=== PATIENT | female | born 1985 | race African-American/Black ===

== ENCOUNTER 2021-11-24 09:35 | Emergency (ER) | payer OTHER ==
[2021-11-24 09:50] VITALS: BMI 28.8
[2021-11-24 11:22] LABS: EPI CELLS 4 /uL (0-25.1); HYALINE CASTS 1 /uL (0-3.1); PH,URINE 6.5 (5.0-8.0); URINE APPEARANCE CLEAR; URINE BACTERIA 11 /uL (0-1359); URINE BILIRUBIN NEGATIVE (NEGATIVE); URINE COLOR YELLOW; URINE GLUCOSE (UA) NEGATIVE (NEGATIVE); URINE KETONE NEGATIVE (NEGATIVE); URINE LEUK ESTERASE NEGATIVE (NEGATIVE); URINE NITRITE NEGATIVE (NEGATIVE); URINE PROTEIN NEGATIVE (NEGATIVE); URINE RBC 42 /uL (0-23.9); URINE UROBILINOGEN 0.2 mg/dL (0.2-1.0); URINE WBC 4 /uL (0-25.8)
[2021-11-24 16:10] VITALS: BP 132/83; PULSE 82; TEMP 98.7
== END 2021-11-24 16:11 | disposition home or self-care (01) ==
LOC: JER 09:35
DX: O20.0 Threatened abortion (principal); Z3A.09 9 weeks gestation of pregnancy
CPT/HCPCS: 36415; 76817-TC; 81003; 84702; 86850; 86900; 86901; 87086; 99284-25